=== PATIENT | male | born 1965 | race Caucasian/White ===

== ENCOUNTER 2016-11-20 11:01 | Emergency (ER) | payer SELFPAY ==
[2016-11-20 11:14] VITALS: TEMP 98.2; BMI 21.4
[2016-11-20] MEDS ORDERED: NS 1,000 ML IV ONE (11:53)
--- NOTE | 2016-11-20 11:56 | EDPRACDOC ---
- General Information Chief Complaint: Abdominal Pain Stated Complaint: ABD PAIN/ FEVER/ VOMITING Information Source: Patient Mode Of Arrival: Car Home Medications: Home Medications Meloxicam 15 mg PO DAILY 10/18/16 Oxycodone HCl [Roxicodone] 5 mg PO TID PRN 10/18/16 Ondansetron [Zofran Odt] 4 mg PO TID PRN #10 tab.rapdis 11/20/16 Pantoprazole Sodium [Protonix] 20 mg PO DAILY #30 tab 11/20/16 Allergies/Adverse Reactions: Allergies Allergy/AdvReac Type Severity Reaction Status Date / Time varenicline tartrate Allergy Severe HALLUCINATI Verified 12/20/15 13:03 [From Chantix] ONS codeine Allergy Unknown Verified 11/20/16 12:18 hydrocodone Allergy Unknown Verified 11/20/16 12:18 - History of Present Illness Onset: 9 days HPI: C/o RUQ pain that radiates to back and N/V, with substernal burning, worse after eating, x 9 days. States he has been constipated for 9 days. Pt takes oxycodone daily for back pain. Denies fever, sob, cp, diarrhea, change in urine. Med hx = broken back and neck. Surgical hx = none. Pt took oxycodone just before coming to ED, no pain currently. Pt has been taking "alot " of naproxen lately for arm fx. Pain Location: Reports: RUQ, Flank Pain Context: Reports: After Eating, With Constipation Pain Severity: Moderate Pain Quality: Reports: Colicky Pain Radiation: Reports: Flank, Back Adult Abdominal History: Denies: Abdominal Surgery Modifying Factors: improves with: Position Associated Signs & Symptoms: Reports: Nausea, Vomiting Oral Intake: Decreased Urinary Output: Normal - Treatment Prior to ED Arrival Reported Medications/Treatment VALIDATION LEADER Medications VALIDATION LEADER (Medication/ Oxycodone 5mg 0600 Dose/Time) ED Past Medical History - History Reviewed Yes Nurses notes reviewed and agree except as marked - Patient Medical History Musculoskeletal History: Reports: Arthritis (back and neck) Psychological History: Reports: Anxiety. Denies: Depression Surgical History: Reports: Other - Family Medical History Denies: Hypertension, Diabetes, Cancer, Stroke, Cardiac Disorders - Social Medical History Smoking Status: Heavy tobacco smoker (5 or more cigarettes/day or daily pipe/ cigar) EDM Review of Systems - Review of Systems ROS Negative Except as Marked: Yes All systems reviewed and were negative except as marked Gastrointestinal: Constipation, Nausea, Pain, Vomiting - Physical Exam Constitutional: Alert Oriented to: Time, Person, Place Last recorded Vital Signs: Last Vital Signs Temp 98.2 F 11/20/16 11:10 Pulse 81 11/20/16 14:09 Resp 18 11/20/16 14:09 BP 137/82 11/20/16 14:09 Pulse Ox 94 11/20/16 14:09 Oxygen Pulse Oxygen Saturation 94 O2 Device Room Air Oxygen Flow Rate Fraction of Inspired Oxygen ( FIO2) - HEENT Head: Normal Eye Exam: negative: Conjunctival Injection, Scleral Icterus Oropharynx: negative: Drooling TMJ: Normal Nose: No Symptoms Reported Neck: Normal - Respiratory/Cardiovascular Respiratory: Normal - CTA Cardiovascular: Normal - GI Auscultation: Normal Palpation: Normal Tenderness: Moderate, RUQ Valdez's Sign: Positive - Musculoskeletal Back: Normal Extremities: Normal - Integumentary Skin: Normal - Neurologic Mood Description: Normal Thought: Coherent - Results 11/20/16 11:25 11/20/16 11:25 WBC 14.6 xk/uL (3.8-10.8) H 11/20/16 11:25 RBC 5.11 xM/uL (4.70-6.10) 11/20/16 11:25 Hgb 16.3 g/dL (14.0-18.0) 11/20/16 11:25 Hct 47.2 % (42-52) 11/20/16 11:25 MCV 93 fL (80-94) 11/20/16 11:25 MCH 31.9 pg (27-32) 11/20/16 11:25 MCHC 34.5 g/dl (33-36) 11/20/16 11:25 RDW 12.9 % (11.5-14.5) 11/20/16 11:25 Plt Count 326 xk/uL (130-400) 11/20/16 11:25 MPV 10.8 fL (7.4-10.4) H 11/20/16 11:25 Neut % (Auto) 80.7 % (45-76) H 11/20/16 11:25 Lymph % (Auto) 10.0 % (17-44) L 11/20/16 11:25 [place] % (Auto) 7.4 % (3-10) 11/20/16 11:25 Eos % (Auto) 1.2 % (0-5) 11/20/16 11:25 Baso % (Auto) 0.7 % (0-2) 11/20/16 11:25 Absolute Neuts (auto) 11.68 xk/uL (1.7-8.2) H 11/20/16 11:25 Absolute Lymphs (auto) 1.46 xk/uL (0.65-4.75) 11/20/16 11:25 Sodium 135 mEq/L (137-146) L 11/20/16 11:25 Potassium 4.9 mEq/L (3.5-5.1) 11/20/16 11:25 Chloride 98 mEq/L (98-107) 11/20/16 11:25 Carbon Dioxide 20 mMOL/L (22-33) L 11/20/16 11:25 Anion Gap 22 mEq/L (8-16) H 11/20/16 11:25 BUN 18 MG/DL (9-20) 11/20/16 11:25 Creatinine 1.10 MG/DL (0.66-1.25) 11/20/16 11:25 Estimated GFR (MDRD) > 60 mL/min (>=60) 11/20/16 11:25 Glucose 110 MG/DL (70-99) H 11/20/16 11:25 Calculated Osmolality 263 MOs/Kg (270-290) L 11/20/16 11:25 Calcium 9.9 MG/DL (8.4-10.2) 11/20/16 11:25 Total Bilirubin 1.0 MG/DL (0.2-1.3) 11/20/16 11:25 AST 19 IU/L (17-59) 11/20/16 11:25 ALT 32 IU/L (21-72) 11/20/16 11:25 Alkaline Phosphatase 117 IU/L (38-126) 11/20/16 11:25 Total Protein 7.9 G/DL (6.3-8.2) 11/20/16 11:25 Albumin 4.7 G/DL (3.5-5.0) 11/20/16 11:25 Lipase 36 U/L (23-300) 11/20/16 11:25 Urine Color Yellow 11/20/16 11:50 Urine Clarity Clear 11/20/16 11:50 Urine pH 5.0 (5.0-8.0) 11/20/16 11:50 Ur Specific [place] 1.020 (1.003-1.035) 11/20/16 11:50 Urine Protein 1+ (NEG/TRACE) H 11/20/16 11:50 Urine Glucose (UA) Neg (NEGATIVE) 11/20/16 11:50 Urine Ketones 1+ (NEGATIVE) H 11/20/16 11:50 Urine Occult Blood 1+ (NEG/TRACE) H 11/20/16 11:50 Urine Nitrite Neg (NEGATIVE) 11/20/16 11:50 Urine Bilirubin Neg (NEGATIVE) 11/20/16 11:50 Urine Urobilinogen <2.0 MG/DL (0-1) 11/20/16 11:50 Ur Leukocyte Esterase Neg (NEGATIVE) 11/20/16 11:50 Urine RBC 0-2 (0-2) 11/20/16 11:50 Urine WBC 0-2 (0-2) 11/20/16 11:50 Urine Mucus Mod (NEG/OCC) H 11/20/16 11:50 Lab Results 11/20/16 11/20/16 11/20/16 11:50 11:25 11:25 WBC 14.6 H RBC 5.11 Hgb 16.3 Hct 47.2 MCV 93 MCH 31.9 MCHC 34.5 RDW 12.9 Plt Count 326 MPV 10.8 H Neut % (Auto) 80.7 H Lymph % (Auto) 10.0 L [place] % (Auto) 7.4 Eos % (Auto) 1.2 Baso % (Auto) 0.7 Absolute Neuts (auto) 11.68 H Absolute Lymphs (auto) 1.46 Sodium Potassium Chloride Carbon Dioxide Anion Gap BUN Creatinine Estimated GFR (MDRD) Glucose Calculated Osmolality Calcium Total Bilirubin AST ALT Alkaline Phosphatase Total Protein Albumin Lipase 36 Urine Color Yellow Urine Clarity Clear Urine pH 5.0 Ur Specific [place] 1.020 Urine Protein 1+ H Urine Glucose (UA) Neg Urine Ketones 1+ H Urine Occult Blood 1+ H Urine Nitrite Neg Urine Bilirubin Neg Urine Urobilinogen <2.0 Ur Leukocyte Esterase Neg Urine RBC 0-2 Urine WBC 0-2 Urine Mucus Mod H 11/20/16 11:25 WBC RBC Hgb Hct MCV MCH MCHC RDW Plt Count MPV Neut % (Auto) Lymph % (Auto) [place] % (Auto) Eos % (Auto) Baso % (Auto) Absolute Neuts (auto) Absolute Lymphs (auto) Sodium 135 L Potassium 4.9 Chloride 98 Carbon Dioxide 20 L Anion Gap 22 H BUN 18 Creatinine 1.10 Estimated GFR (MDRD) > 60 Glucose 110 H Calculated Osmolality 263 L Calcium 9.9 Total Bilirubin 1.0 AST 19 ALT 32 Alkaline Phosphatase 117 Total Protein 7.9 Albumin 4.7 Lipase Urine Color Urine Clarity Urine pH Ur Specific [place] Urine Protein Urine Glucose (UA) Urine Ketones Urine Occult Blood Urine Nitrite Urine Bilirubin Urine Urobilinogen Ur Leukocyte Esterase Urine RBC Urine WBC Urine Mucus - Diagnostic Imaging Abdomen Image interpreted by: Radiologist 11/20/16 12:50 EXAM: DG ABDOMEN ACUTE W/ 1V CHEST COMPARISON: Multiple exams, including 12/16/2015 FINDINGS: The paraseptal emphysema shown on the 04/10/[address] is less readily apparent today. Symmetric nipple shadows noted. The lungs appear clear. Cardiac and mediastinal margins appear normal. No free intraperitoneal gas beneath the hemidiaphragms. No significant abnormal air-fluid levels. Prominence of gas and stool in the colon favoring constipation. No significant abnormal calcifications are observed. IMPRESSION: 1. Prominent stool throughout the colon favors constipation. 2. Paraseptal emphysema, better shown on prior chest CT from 2013. Electronically Signed By: Leo Montoya M.D. On: 11/20/2016 12:32 Other Image interpreted by: Radiologist 11/20/16 13:31 EXAM: US ABDOMEN LIMITED - RIGHT UPPER QUADRANT COMPARISON: Noncontrast CT scan of the chest of April 10, 2014 which included portions of the liver and gallbladder. FINDINGS: Gallbladder: No gallstones or wall thickening visualized. No sonographic Valdez sign noted by software administrator. Common bile duct: Diameter: 3.3 mm Liver: The liver exhibits normal echotexture with no focal mass nor ductal dilation. IMPRESSION: Normal limited right upper quadrant ultrasound. If there remain strong clinical concerns of gallbladder dysfunction, a nuclear medicine hepatobiliary scan may be useful. Electronically Signed By: Tenzin Antonio M.D. On: 11/20/2016 13:16 - Additional Information no impaction noticed with digital inspection Decision Time to Discharge: 13:39 - Departure Condition: Stable Final Diagnosis: Right sided abdominal pain Gastritis Qualifiers: Gastritis type: unspecified gastritis Chronicity: acute Gastritis bleeding: presence of bleeding unspecified Qualified Code(s): K29.00 - Acute gastritis without bleeding Instructions: Ondansetron (By mouth), Pantoprazole (By mouth), Gastritis (ED), Acute Abdominal Pain (ED) Education/Counseling Given To: Patient Education/Counseling Given Regarding: Diagnosis, Treatment, Prognosis, Follow Up Referrals: Lena Anderson MD [Staff Physician] - One Week Prescriptions: Ondansetron [Zofran Odt] 4 mg PO TID PRN #10 tab.rapdis PRN Reason: Nausea/Vomiting Pantoprazole Sodium [Protonix] 20 mg PO DAILY #30 tab Additional Instructions: Follow up with primary care for right side abdominal pain. Take protonix for stomach pain. Return to ED for any new or worsening symptoms.
[2016-11-20 12:24] LABS: AUTOMATED BASOPHIL 0.7 % (0-2); AUTOMATED EOSINOPHIL 1.2 % (0-5); AUTOMATED MONOCYTE 7.4 % (3-10); AUTOMATED NEUTROPHIL 80.7 % (45-76); MPV 10.8 fL (7.4-10.4)
[2016-11-20 12:33] LABS: LEUKOCYTES/URINE NEG (NEGATIVE); NITRITE/URINE NEG (NEGATIVE); RBC/URINE 0-2 (0-2); URINE OCCULT BLOOD 1+ (NEG/TRACE); WBC/URINE 0-2 (0-2)
--- NOTE | 2016-11-20 12:35 | DIRPT ---
CLINICAL DATA: Constipation for 9 days with right upper quadrant abdominal pain. EXAM: DG ABDOMEN ACUTE W/ 1V CHEST COMPARISON: Multiple exams, including 12/16/2015 FINDINGS: The paraseptal emphysema shown on the 04/10/[address] is less readily apparent today. Symmetric nipple shadows noted. The lungs appear clear. Cardiac and mediastinal margins appear normal. No free intraperitoneal gas beneath the hemidiaphragms. No significant abnormal air-fluid levels. Prominence of gas and stool in the colon favoring constipation. No significant abnormal calcifications are observed. IMPRESSION: 1. Prominent stool throughout the colon favors constipation. 2. Paraseptal emphysema, better shown on prior chest CT from 2013. Electronically Signed By: Leo Montoya M.D. On: 11/20/2016 12:32
[2016-11-20 12:38] LABS: BLOOD UREA NITROGEN 18 MG/DL (9-20); CALCIUM 9.9 MG/DL (8.4-10.2); CALCULATED OSMOLALITY 263 MOs/Kg (270-290); CHLORIDE 98 mEq/L (98-107); GLUCOSE 110 MG/DL (70-99); SODIUM LEVEL 135 mEq/L (137-146); TOTAL PROTEIN 7.9 G/DL (6.3-8.2)
--- NOTE | 2016-11-20 13:19 | DIRPT ---
CLINICAL DATA: Eight-nine days of right upper quadrant abdominal pain associated with nausea vomiting and constipation. EXAM: US ABDOMEN LIMITED - RIGHT UPPER QUADRANT COMPARISON: Noncontrast CT scan of the chest of April 10, 2014 which included portions of the liver and gallbladder. FINDINGS: Gallbladder: No gallstones or wall thickening visualized. No sonographic Valdez sign noted by rn psych. Common bile duct: Diameter: 3.3 mm Liver: The liver exhibits normal echotexture with no focal mass nor ductal dilation. IMPRESSION: Normal limited right upper quadrant ultrasound. If there remain strong clinical concerns of gallbladder dysfunction, a nuclear medicine hepatobiliary scan may be useful. Electronically Signed By: Tenzin Antonio M.D. On: 11/20/2016 13:16
[2016-11-20 14:13] VITALS: BP 137/82; PULSE 81
== END 2016-11-20 14:09 | disposition home or self-care (01) ==
LOC: ED 11:01
DX: R10.11 Right upper quadrant pain (principal); K29.00 Acute gastritis without bleeding; F41.9 Anxiety disorder, unspecified; F17.200 Nicotine dependence, unspecified, uncomplicated; Z79.899 Other long term (current) drug therapy
CPT/HCPCS: 36415; 74022; 76705; 80053; 81001; 83690; 85025; 96360; 99283